=== PATIENT | male | born 1950 | race Two or more races ===

== ENCOUNTER 2020-06-14 16:48 | Emergency (ER) | payer MEDICARE, BC, SELFPAY ==
[2020-06-14] VITALS (7 sets, daily range): BP systolic 109–122; BP diastolic 40–66; PULSE 91–102; RESP 20–27; TEMP 37–38.9; O2SAT 99–100
--- NOTE | ~2020-06-14 | XR_ITS ---
EXAMINATION: XR chest 1V portable EXAM DATE: 06/14/2020 18:06 INDICATION: Fever, cough, vomiting. Can't swallow base. TECHNIQUE: Portable AP frontal chest x-ray was obtained. There is no prior study for comparison. FINDINGS: Somewhat rounded approximately 2 cm retrocardiac opacity identified medially, indicated. Co uld be focal region of acute airspace disease, hernia, or less likely lung cancer. Recommend further evaluation with CT or PA/lateral chest x-ray once acute symptoms resolve. The lungs are otherwise clear. There are no pleural effusions. The cardiomediastinal silhouette is p rominent but magnified on this AP technique. There is no pneumothorax suspected. The bones and sof t tissues are unremarkable. IMPRESSION: Somewhat rounded retrocardiac opacity, could be acute airspace disease but nonspecific. F ollow-up is recommended. Reviewed, dictated and finalized at location A. IMPRESSION: Somewhat rounded retrocardiac opacity, could be acute airspace dise ase but nonspecific. Follow-up is recommended.
[2020-06-14 18:44] LABS: Basophils Absolute Auto 0.1 K/mm3 (0.0-0.1); Basophils Percent Auto 0.5 % (0.2-1.2); Eosinophils Percent Auto 0.1 % (0-4.4); Hematocrit 32.3 % (42.0-52.0); Hemoglobin 10.3 g/dL (14.0-18.0); Immature Granulocyte Absolute 0.11 K/mm3 (0.00-0.031); Immature Granulocyte Percent A 0.8 % (0-0.5); Lymphocytes Absolute Auto 0.44 K/mm3 (0.9-3.2); Lymphocytes Percent Auto 3.3 % (18.3-44.2); Mean Corpuscular HGB Conc 31.9 g/dl (32-36); Mean Corpuscular Hemoglobin 26.9 pg (26-34); Mean Corpuscular Volume 84.3 fl (80-100); Mean Platelet Volume 9.7 fl (7.4-10.4); Monocytes Absolute Auto 0.9 K/mm3 (0.1-0.6); Monocytes Percent Auto 6.4 % (2.6-8.5); Neutrophils Absolute Auto 11.7 K/mm3 (1.3-6.7); Neutrophils Percent Auto 88.9 % (45.5-73.1); Platelet Count Result 223 k/mm3 (150-375); Red Blood Count 3.83 M/mm3 (4.6-6.20); Red Cell Distribution Width 16.2 % (11.5-14.5); White Blood Count 13.2 K/mm3 (4.5-10.0)
[2020-06-14] MEDS: KETOROLAC 30 MG/ML VIAL (*BKC) IV PUSH (18:52)
[2020-06-14 18:55] LABS: Alanine Aminotransferase 15 U/L (4-50); Albumin Level 4.4 g/dL (3.5-5.1); Alkaline Phosphatase 45 U/L (38-126); Anion Gap 11 mmol/L (8-16); Aspartate Amino Transferase 21 U/L (17-59); Bilirubin,Total 1.9 mg/dL (0.2-1.3); Blood Urea Nitrogen 20 mg/dL (9-20); Calcium 9.3 mg/dL (8.4-10.2); Carbon Dioxide 25 mmol/L (22-30); Chloride 98 mmol/L (98-107); Estimated CRCL calculation 49 ml/min; Estimated Glomerular Filt Rate > 60; Glucose 189 mg/dL (75-110); Potassium 4.4 mmol/L (3.4-5.0); Sodium 134 mmol/L (137-145)
[2020-06-14] MEDS: SODIUM CHLORIDE 0.9% IV 1,000 ML 150 ML IV CONT ×2 (18:55)
[2020-06-14 19:16] LABS: Add Urine Microscopic? YES; Appearance Urine Cloudy (Clear); Bacteria Urine Trace /hpf; Bilirubin Urine Negative (Negative); Blood Urine 1+ (Negative); Color Urine Yellow (Yellow); Glucose Urine UA 1+ mg/dL (Negative); Ketones Urine Negative (Negative); Leukocyte Esterase Ur 3+ LEU/UL (Negative); Mucus Urine Rare /lpf; Nitrate Urine Negative (Negative); Protein Urine 2+ mg/dL (Negative); Specific Grav Ur 1.027 (1.001-1.035); Squamous Epithelial Cell Urine Rare /hpf (Few); WBC Clumps Urine Present /HPF; WBC Urine >75 /hpf
--- NOTE | 2020-06-14 20:26 | ED.FEVER ---
HPI - Fever General Chief Complaint: Fever Stated Complaint: fever and body aches Time Seen by Provider: 06/14/20 17:30 Source: patient and family Mode of arrival: ambulatory Limitations: no limitations History of Present Illness HPI Narrative: 70-year-old with a history of hypertension, diabetes, BPH here with complaints of having fever since yesterday. Patient states that his whole body is hurting, having dysuria as well. No COVID exposure. No history of nausea or vomiting. Patient states that he has taken TheraFlu and Tylenol this afternoon. No history of cough or shortness of breath. MD elicited complaint: fever Pertinent past history: diabetes Onset (ago): day(s) (1) Associated symptoms: myalgias Treatments prior to arrival fever: acetaminophen Related Data Home Medications Medication Instructions Recorded Confirmed glimepiride 4 mg PO DAILY 06/14/20 lovastatin 20 mg PO DAILY 06/14/20 metformin 1,000 mg PO DAILY 06/14/20 pioglitazone 30 mg PO DAILY 06/14/20 Allergies Allergy/AdvReac Type Severity Reaction Status Date / Time No Known Allergies Allergy Verified 06/14/20 18:01 Review of Systems Review of Systems: All systems reviewed & are unremarkable except as noted in HPI and below Constitutional: Constitutional: Reports as per HPI Eyes: Eyes: Reports as per HPI ENT: Reports system reviewed and no additional complaints, except as documented Cardiovascular: Cardiovascular: Reports no additional cardiovascular complaints Respiratory: Respiratory: Reports no additional respiratory complaints Gastrointestinal: Gastrointestinal: Reports no additional gastrointestinal complaints Genitourinary: Genitourinary: Reports dysuria and Reports urinary frequency Musculoskeletal: Musculoskeletal: Reports no additional musculoskeletal complaints Integumentary/Breasts: Skin/Breast: Reports system reviewed and no additional complaints, except as docu Neurologic: Reports system reviewed and no additional complaints, except as documented PMFSH Social History Social History Gender identity (if verbalized by the patient): Male Exam Narrative: Exam Narrative: GENERAL: Well-appearing, well-nourished, and in no acute distress. HEAD: Normocephalic, atraumatic. EYES: PERRLA and EOMI. ENT: Nares clear, Mucous membranes moist. NECK: Supple. CHEST: Clear to auscultation. No respiratory distress. HEART: Regular rate and rhythm. No murmur heard. Normal peripheral pulses. ABDOMEN: Soft, nontender, nondistended, normal active bowel sounds. EXTREMITIES: Normal range of motion. No edema. SKIN: Warm, dry, no rash. NEURO: No focal deficits. Alert and oriented x3. PSYCH: Normal mood and affect. 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 Will give 1 g of IV Rocephin here in the ER and advised patient to take Duricef 500 mg twice a day for 10 days, and also recommended him to drink plenty of fluids check blood sugar and follow-up with his primary doctor Vital Signs Vital signs: Vital Signs Temperature 38.3 C H 06/14/20 16:51 Pulse Rate 102 H 06/14/20 16:51 Respiratory Rate 20 06/14/20 16:51 Blood Pressure 116/66 06/14/20 16:51 Pulse Oximetry 100 06/14/20 16:51 Temperature 38.9 C H 06/14/20 18:56 Pulse Rate 97 06/14/20 20:01 Respiratory Rate 21 H 06/14/20 20:01 Blood Pressure 114/55 L 06/14/20 20:01 Pulse Oximetry 99 06/14/20 20:01 MDM - Fever Lab Data Result diagrams: 06/14/20 18:35 06/14/20 18:35 Labs: Lab Results 06/14/20 06/14/20 06/14/20 Range/Units 18:35 18:35 18:36 WBC 13.2 H (4.5-10.0) K/mm3 RBC 3.83 L (4.6-6.20) M/mm3 Hgb 10.3 L (14.0-18.0) g/dL Hct 32.3 L (42.0-52.0) % MCV 84.3 (80-100) fl MCH 26.9 (26-34) pg MCHC 31.9 L (32-36) g/dl
== END 2020-06-14 20:56 | disposition home or self-care (01) ==
PROVIDERS: Emergency Provider Family Medicine; PCP Internal Medicine
DX: N30.00 Acute cystitis without hematuria (principal); I10 Essential (primary) hypertension; E11.9 Type 2 diabetes mellitus without complications; N40.0 Benign prostatic hyperplasia without lower urinary tract symptoms; Z79.84 Long term (current) use of oral hypoglycemic drugs
CPT/HCPCS: 36415; 71045; 80053; 81001; 83605; 85025; 87040; 87077; 87086; 87088; 87186; 96361; 96365; 96375; 99284; J0696; J1885; J7030